=== PATIENT | male | born 1975 | race Asian ===

== ENCOUNTER 2016-08-25 | Emergency (ER) | payer OTHER ==
--- NOTE | 2016-08-25 11:51 | ED Physician Documentation ---
PD HPI HEENT - Stated complaint Stated Complaint: R SIDE FACE SWELLING - Chief complaint Chief Complaint: Heent - History obtained from History obtained from: Patient - Additional information Additional information: Relatively healthy 41-year-old gentleman who woke up this morning with mildly painful right-sided facial swelling. There is no associated fever or chills. He did see the dentist recently but for that was for problem on the left. Review of Systems Constitutional: denies: Fever, Chills Nose: denies: Rhinorrhea / runny nose, Congestion Throat: denies: Dental pain / toothache, Sore throat PD PAST MEDICAL HISTORY - Past Medical History Past Medical History: No - Past Surgical History Past Surgical History: No - Present Medications Home Medications: Ambulatory Orders Medication Instructions Recorded Confirmed Amox/Clav 875/125 [Augmentin] 1 each PO Q12H #20 tablet 08/25/16 Unknown Statin 08/25/16 - Allergies Allergies/Adverse Reactions: Allergies Allergy/AdvReac Type Severity Reaction Status Date / Time aspirin AdvReac Unknown Verified 08/25/16 10:27 - Social History Does the pt smoke?: No Smoking Status: Never smoker PD ED PE NORMAL - Vitals Vital signs reviewed: Yes (normal) - General General: Alert and oriented X 3, No acute distress - HEENT HEENT: PERRL, EOMI, Other (Upper teeth gone- denture in place. Lower teeth no obvious cavity or abscess. Mild swelling over the angle of the jaw with very mild TTP, but no warmth,redness. No trismus but does have a lot of clicking at the TMJs bilaterally.) - Neuro Neuro: Alert and oriented X 3, Normal speech - Psych Psych: Normal mood, Normal affect Results - Vitals Vitals: Vital Signs - 24 hr 08/25/16 10:24 Temperature 36 C L Heart Rate 65 Respiratory 14 Rate Blood Pressure 114/72 O2 Saturation 99 Oxygen O2 Source Room air PD MEDICAL DECISION MAKING - ED course ED course: Could be very mild parotitis without systemic symptoms, retained stone in salivary duct, for a dental infection although I don't see an obvious dental source. He is given strict return precautions and advised to followup on Sunday with ENT if not better Departure - Departure Disposition: Home, Self Care Clinical Impression: Right facial swelling Condition: Good Record reviewed to determine appropriate education?: Yes Instructions: ED Cellulitis Facial Prescriptions: Amox/Clav 875/125 [Augmentin] 1 each PO Q12H #20 tablet Comments: Return immediately if you worsen, run a fever, cannot open your mouth. If not better on Sunday, call for ear nose and throat followup, the closest is in [place],
== END 2016-08-25 11:54 | disposition home or self-care (01) ==
DX: R22.0 Localized swelling, mass and lump, head (principal)
CPT/HCPCS: 99283

== ENCOUNTER 2023-04-05 14:00 | Emergency (ER) | payer OTHER ==
--- NOTE | 2023-04-05 16:13 | ED Physician Documentation ---
History of Present Illness - Stated complaint Stated Complaint: BACK PX - Chief complaint Chief Complaint: Back Pain - Additonal information Additional information: He works at [employer] and was attaching a heavy lid to a plastic container. The lid fell striking the right side of his back. Reports the lid weighed about 20 pounds. Since then he has been having pain in the right side of the back. Took 200 mg of Motrin which helped somewhat. No history of previous injury. No saddle anesthesia, loss of bowel or bladder function. Review of Systems Musculoskeletal: reports: Back pain PD PAST MEDICAL HISTORY - Past Medical History Past Medical History: Yes Cardiovascular: High cholesterol - Past Surgical History Past Surgical History: No - Present Medications Home Medications: Ambulatory Orders Medication Instructions Recorded Confirmed Atorvastatin [Lipitor] 20 mg PO DAILY 04/05/23 04/05/23 - Allergies Allergies/Adverse Reactions: Allergies Allergy/AdvReac Type Severity Reaction Status Date / Time aspirin AdvReac Unknown Verified 04/05/23 14:18 - Social History Does the pt smoke?: No Smoking Status: Never smoker PD ED PE NORMAL - General General: Alert and oriented X 3, No acute distress - Neck Neck: Supple, no meningeal sign - Cardiac Cardiac: RRR, No murmur - Abdomen Abdomen: Normal bowel sounds, Soft - Back Back: No CVA TTP, No spinal TTP (No tenderness elicited with palpation of the thoracic or lower lumbar spine. Right-sided paraspinous muscle body tenderness without obvious ecchymosis. Mildly reduced forward flexion of the lumbar spine. Normal gait.) Results - Vitals Vitals: Vital Signs - 24 hr 04/05/23 14:13 Temperature 37.1 C Heart Rate 60 Respiratory 18 Rate Blood Pressure 120/70 O2 Saturation 97 Oxygen O2 Source Room air PD Medical Decision Making - ED course Complexity details: d/w patient ED course: Acute right-sided low back pain after his back was struck by a heavy plastic lid weighing about 20 pounds yesterday. He has taken 200 and Motrin without relief of symptoms. History and exam is most consistent with a contusion. Given the lack of midline spinous process tenderness I have lower suspicion for occult fracture and as such deferred imaging today. Patient is taking a subtherapeutic dose of Motrin and was advised to take 600 mg with food 2-3 times a day. Also advised to ice the back. I would expect general improvement over the next 7 to 10 days. If not improved then please return to the ER follow-up with PCP. L&I paperwork was completed at the bedside. Departure - Departure Disposition: 01 Home, Self Care Clinical Impression: Work related injury Contusion, back Qualifiers: Encounter type: initial encounter Laterality: right Qualified Code(s): S20.221A - Contusion of right back wall of thorax, initial encounter Condition: Stable Instructions: ED Contusion Back Comments: You had a heavy plastic lid strike your right side of your back yesterday. You have had some pain in this region since. This history is consistent with a contusion or bruise of the back. Most contusions will begin to get better after about 7 to 10 days. Most pain is worse at day #3 before it begins to get steadily better. I recommend icing the back for 10 minutes 2-3 times a day. You can take ibuprofen 600 mg with food 3 times a day for discomfort. If you find that your symptoms or not markedly improving after a week to 10 days, you develop blood in your urine, have fevers suddenly severe or different pain then please return to the ER. I encourage you not to wear the back brace as I do not believe it will benefit you clinically and it can cause weakness in the abdominal muscles by wearing it too excessively. I am returning you to modified duty on 09 April. No heavy lifting greater than 10 pounds. 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
[2023-04-05 16:25] VITALS: BP 122/87; O2SAT 98
== END 2023-04-05 16:20 | disposition home or self-care (01) ==
LOC: ED 14:00
DX: S20.221A Contusion of right back wall of thorax, initial encounter (principal); W20.8XXA Other cause of strike by thrown, projected or falling object, initial encounter
CPT/HCPCS: 99281; 99283

== ENCOUNTER 2023-07-12 08:15 | Emergency (ER) | payer OTHER ==
--- NOTE | 2023-07-12 09:07 | ED Physician Documentation ---
PD HPI DYSPNEA - Stated complaint Stated Complaint: LT ARM NUMB/SOA - Chief complaint Chief Complaint: Neuro - History obtained from History obtained from: Patient, Family - History of Present Illness Timing - onset: How many days ago (2-3) Timing - onset during: Light activity Timing - duration: Days (2-3) Timing - details: Gradual onset, Still present, Waxing and waning Inciting event(s): URI (some cough and dyspnea with history of asthma and smoking. Has some cough/congestion but not fevers nor sputum production.) Improved by: Rest. No: Sitting up Worsened by: Coughing. No: Laying flat Associated symptoms: Cough, Wheezing. No: Fever, Chest pain / discomfort, Bilateral edema Similar symptoms before: Has not had sx before Recently seen: Not recently seen Review of Systems Constitutional: denies: Fever, Chills, Myalgias Nose: reports: Rhinorrhea / runny nose, Congestion Cardiac: reports: Chest pain / pressure (tightnesss left chest, radiating to left arm/numbs tingling). denies: Calf pain Respiratory: reports: Dyspnea, Cough, Wheezing GI: denies: Abdominal Pain, Nausea, Vomiting PD PAST MEDICAL HISTORY - Past Medical History Cardiovascular: High cholesterol Respiratory: None Neuro: None Endocrine/Autoimmune: None - Past Surgical History Past Surgical History: No - Present Medications Home Medications: Ambulatory Orders Medication Instructions Recorded Confirmed Atorvastatin [Lipitor] 20 mg PO DAILY 04/05/23 04/05/23 Albuterol Sulf [Ventolin Hfa 1 - 2 puffs INH Q4HR PRN #1 each 07/12/23 Inhaler] - Allergies Allergies/Adverse Reactions: Allergies Allergy/AdvReac Type Severity Reaction Status Date / Time aspirin AdvReac Unknown Verified 04/05/23 14:18 - Social History Does the pt smoke?: No Smoking Status: Former smoker PD ED PE NORMAL - Vitals Vital signs reviewed: Yes - General General: Alert and oriented X 3, No acute distress, Well developed/nourished - HEENT HEENT: Moist mucous membranes, Pharynx benign - Neck Neck: Supple, no meningeal sign, No adenopathy - Cardiac Cardiac: RRR, No murmur - Respiratory Respiratory: No respiratory distress, Clear bilaterally - Abdomen Abdomen: Soft, Non tender - Extremities Extremities: No edema, No calf tenderness / cord - Neuro Neuro: Alert and oriented X 3, No motor deficit, Normal speech Results - Vitals Vitals: Vital Signs - 24 hr 07/12/23 07/12/23 07/12/23 08:18 10:39 11:05 Temperature 36.5 C 36.3 C L Heart Rate 80 61 62 Respiratory 18 18 18 Rate Blood Pressure 140/86 H 122/87 H 115/90 H O2 Saturation 98 95 95 Oxygen O2 Source Room air - EKG (time done) 09:15 EKG releavant findings:: EKG personally interpreted by author of this note. Relevant findings are: Rhythm: NSR (66) [place]: Normal Intervals: Normal [place] QRS: Normal Ischemia: Normal ST segments. No: ST elevation c/w ischemia, ST depression - Labs Labs: Laboratory Tests 07/12/23 07/12/23 07/12/23 09:56 09:56 09:56 WBC 5.7 RBC 4.37 L Hgb 15.2 Hct 43.6 MCV 99.8 H MCH 34.8 H MCHC 34.9 RDW 11.0 L Plt Count 182 MPV 10.4 Neut # (Auto) 3.6 Lymph # (Auto) 1.6 [place] # (Auto) 0.4 Eos # (Auto) 0.0 Baso # (Auto) 0.0 Absolute Nucleated RBC 0.00 Nucleated RBC % 0.0 Sodium 140 Potassium 3.8 Chloride 103 Carbon Dioxide 29 Anion Gap 8.0 BUN 13 Creatinine 0.8 Estimated GFR (MDRD) 103 Glucose 139 H Calcium 9.3 Magnesium 2.1 Total Bilirubin 0.8 AST 25 ALT 36 Alkaline Phosphatase 45 Troponin I High Sens 3.7 B-Natriuretic Peptide 11 Total Protein 7.0 Albumin 4.3 Globulin 2.7 Albumin/Globulin Ratio 1.6 Lipase 33 - Rads (name of study) chest xray Relevant Findings:: Prelim report reviewed, EMP independent interpretation of test (no acute infiltrates nor PTX/effusions. ) PD Medical Decision Making - ED course Complexity details: reviewed results (chest xray without infiltraes nor acute problem.s ECG normal. Labs shwoing normal troponoin abd BNP. Not anemic nor lytes abnormal. ), re-evaluated patient, considered differential, d/w patient Reviewed Lab Results: chest discomfort with some URI/cough symoptosm. CXR/ECG and labs are normal. SO no signs of CHF. Presume some URI with dyspnea. Departure - Departure Disposition: 01 Home, Self Care Clinical Impression: Dyspnea, Chest discomfort, Chest pain, rule out acute myocardial infarction Condition: Stable Record reviewed to determine appropriate education?: Yes Instructions: ED Dyspnea Shortness of Breath Follow-Up: NIA TIRADO ARNP [Primary Care Provider] - Prescriptions: Albuterol Sulf [Ventolin Hfa Inhaler] 1 - 2 puffs INH Q4HR PRN #1 each PRN Reason: Shortness Of Air/Wheezing Comments: Your EKG shows a slight abnormality that looks like "early repolarization" which is a normal variation and not abnormal/bad. Your blood test show no signs of heart attack or heart failure with test called troponin and BNP. Your chest x- ray is clear without any signs of fluid collected, collapsed lung, pneumonia or enlarged heart. Your other blood tests including chemistry panel, blood sugar and blood count are normal. At this point it is not clear the cause of your shortness of breath or arm discomfort. I did be more inclined to think of respiratory irritation or early viral illness. I would suggest using some Tylenol or ibuprofen if needed for discomfort. In addition you could try albuterol inhaler 2 to 3 puffs 4 times daily for the next few days and at times if you are having more trouble breathing. See how you do generally with other symptoms over the next few days if you develop head cold symptoms or such. Otherwise if this just improves over the next few days then no further follow-up needed. If you have persisting symptoms despite the time of few days plus inhaler then follow-up with your primary care for other potential treatment options. I sent the inhaler prescription to [facility] pharmacy. Forms: PCP List Discharge Date/Time: 07/12/23 11:12
[2023-07-12 10:12] LABS: BASOPHILS % (AUTO) 0.7 %; EOSINOPHILS % (AUTO) 0.7 %; HCT - HEMATOCRIT 43.6 % (42.0-52.0); HGB - HEMOGLOBIN 15.2 g/dL (14.0-18.0); LYMPHOCYTES # (AUTO) 1.6 10^3/uL (1.5-3.5); MEAN CORPUSCULAR HEMOGLOBIN 34.8 pg (27.0-31.0); MEAN CORPUSCULAR HGB CONC 34.9 g/dL (32.0-36.0); MEAN CORPUSCULAR VOLUME 99.8 fL (80.0-94.0); MEAN PLATELET VOLUME 10.4 fL (7.4-11.4); MONOCYTES # (AUTO) 0.4 10^3/uL (0.0-1.0); MONOCYTES % (AUTO) 7.4 %; NEUTROPHILS # (AUTO) 3.6 10^3/uL (1.5-6.6); NEUTROPHILS % (AUTO) 62.8 %; PLT - PLATELET COUNT 182 10^3/uL (130-450); RED BLOOD COUNT 4.37 10^6/uL (4.70-6.10); WHITE BLOOD COUNT 5.7 x10^3/uL (4.8-10.8)
[2023-07-12 10:17] LABS: ALBUMIN 4.3 g/dL (3.2-5.5); ALBUMIN/GLOBULIN RATIO 1.6 (1.0-2.2); BILIRUBIN,TOTAL 0.8 mg/dL (0.2-1.0); CALCIUM 9.3 mg/dL (8.5-10.3); CREATININE 0.8 mg/dL (0.6-1.3); MAGNESIUM 2.1 mg/dL (1.7-2.3); POTASSIUM 3.8 mmol/L (3.5-4.5)
--- NOTE | 2023-07-12 10:19 | XRAY Report ---
PROCEDURE: Chest 1V INDICATIONS: Chest Pain TECHNIQUE: One view of the chest was acquired. COMPARISON: None. FINDINGS: Surgical changes and devices: None. Lungs and pleura: No pleural effusions or pneumothorax. Lungs are clear. Mediastinum: Mediastinal contours appear normal. Heart size is normal. Bones and chest wall: No suspicious bony lesions. Overlying soft tissues appear unremarkable. IMPRESSION: No acute cardiopulmonary process. Reviewed by: Fredy Young MD on 07/12/2023 10:18 AM [facility] Approved by: Fredy Young MD on 07/12/2023 10:18 AM [facility] Station ID: [id number]
[2023-07-12 10:24] LABS: TROPONIN I HIGH SENSITIVITY 3.7 ng/L (2.3-19.7)
[2023-07-12 10:47] VITALS: O2SAT 95
[2023-07-12] MEDS ORDERED: ACETAMINOPHEN 325 MG TABLET PO STA (10:51)
[2023-07-12 11:14] VITALS: BP 115/90
== END 2023-07-12 11:12 | disposition home or self-care (01) ==
LOC: ED 08:15
DX: R06.09 Other forms of dyspnea (principal); R07.9 Chest pain, unspecified; Z87.891 Personal history of nicotine dependence
CPT/HCPCS: 36415; 71045; 80053; 83690; 83735; 83880; 84484; 85025; 93005; 99284; A9270